=== PATIENT | female | born 1965 | race Caucasian/White ===

== ENCOUNTER 2017-08-17 08:31 | Emergency (ER) | payer BC ==
--- NOTE | 2017-08-17 09:36 | ED Physician Documentation ---
PD HPI URI - Stated complaint Stated Complaint: HEADACHE,SORE THROAT,COUGH - Chief complaint Chief Complaint: General - History obtained from History obtained from: Patient - History of Present Illness Timing - onset: How many days ago (5) Timing duration: Days (5) Timing details: Gradual onset, Still present Associated symptoms: Fever, Chills, Nasal congestion, Rhinorrhea, Sore throat, Dry cough, Dyspnea Contributing factors: Sick contact Improves by: Rest, Medication Worsened by: Activity Similar symptoms before: Diagnosis (influenza) Recently seen: Not recently seen - Additional information Additional information: 52-year-old female developed a cough congestion fever muscle aches and pains 5 days ago and this has persisted. She has been out of work since of last week and she was unable to get into see her doctor earlier today. 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 - Present Medications Home Medications: Ambulatory Orders Medication Instructions Recorded Confirmed Amoxicillin/Potassium Clav 1 each PO BID #28 tablet 06/20/13 [Augmentin 875-125 Tablet] - Allergies Allergies/Adverse Reactions: Allergies Allergy/AdvReac Type Severity Reaction Status Date / Time Iodinated Contrast- Oral and Allergy Unknown Verified 08/17/17 08:42 IV Dye - Social History Does the pt smoke?: No Smoking Status: Never smoker Does the pt drink ETOH?: No Does the pt have substance abuse?: No - Immunizations Immunizations are current?: Yes - POLST Patient has POLST: No PD ED PE NORMAL - Vitals Vital signs reviewed: Yes (Hypertensive) - General General: Alert and oriented X 3, No acute distress, Well developed/nourished - HEENT HEENT: Atraumatic, PERRL, EOMI, Ears normal, Other (Dry mucous membranes no inflammation in the pharynx) - Neck Neck: Supple, no meningeal sign, No bony TTP - Cardiac Cardiac: No murmur, Other (Tachycardic to 100) - Respiratory Respiratory: No respiratory distress, Clear bilaterally - Abdomen Abdomen: Soft, Non tender - Back Back: No CVA TTP, No spinal TTP - Derm Derm: Normal color, Warm and dry, No rash - Extremities Extremities: No deformity, No edema - Neuro Neuro: No motor deficit, No sensory deficit Eye Opening: Spontaneous Motor: Obeys Commands Verbal: Oriented GCS Score: 15 - Psych Psych: Normal mood, Normal affect Results - Vitals Vitals: Vital Signs - 24 hr 08/17/17 08:35 Temperature 36.7 C Heart Rate 94 Respiratory 20 Rate Blood Pressure 145/84 H O2 Saturation 97 Oxygen O2 Source Room air - Labs Labs: Laboratory Tests 08/17/17 08/17/17 08:58 08:58 Influenza A (Rapid) Negative Influenza B (Rapid) POSITIVE H Influenza Types A,B Ag + H Group A Strep Rapid Negative PD MEDICAL DECISION MAKING - ED course Complexity details: considered differential, d/w patient ED course: 52-year-old female with typical symptoms of influenza is positive for influenza B. She has no other signs of secondary infection at day 5 of her illness. She is administered dexamethasone. I discussed with the patient signs and symptoms of secondary infection as a reason to return to the emergency department. Departure - Departure Disposition: 01 Home, Self Care Clinical Impression: Influenza B Condition: Stable Instructions: ED Flu Follow-Up: Rio Magdaleno MD [Primary Care Provider] - Forms: Activity restrictions
[2017-08-17] MEDS ORDERED: DEXAMETHASONE 10 MG/ML VIAL PO STA (09:47)
[2017-08-17 10:10] VITALS: BP 138/81
== END 2017-08-17 10:08 | disposition home or self-care (01) ==
LOC: ED 08:31
DX: J10.1 Influenza due to other identified influenza virus with other respiratory manifestations (principal)
CPT/HCPCS: 87070; 87275; 87276; 87430; 99283

== ENCOUNTER 2018-01-07 09:21 | Day surgery (SDC) | payer BC ==
[2018-01-07] MEDS ORDERED: LACTATED RINGERS 1,000 ML IV ONE (10:00)
[2018-01-07] MEDS ORDERED: fentaNYL 250 MCG/5 ML VIAL IVP ONE (10:28)
[2018-01-07] MEDS ORDERED: MIDAZOLAM 2 MG/2 ML VIAL IVP ONE (10:28)
[2018-01-07 11:54] VITALS: BP 128/80
== END 2018-01-07 09:22 | disposition home or self-care (01) ==
LOC: SDS 09:21
PROVIDERS: ATTEND Surgery
PROC: 0DBN8ZZ Excision of Sigmoid Colon, Via Natural or Artificial Opening Endoscopic (ICD-10-PCS; principal; 2018-01-07 10:30)
DX: Z12.11 Encounter for screening for malignant neoplasm of colon (principal); D12.5 Benign neoplasm of sigmoid colon; K64.8 Other hemorrhoids; J45.909 Unspecified asthma, uncomplicated
CPT/HCPCS: 45380; J3010; J7120

== ENCOUNTER 2018-07-14 01:10 | Emergency (ER) | payer BC ==
[2018-07-14] MEDS ORDERED: MORPHINE 10 MG/ML VIAL IVP STA (01:45)
[2018-07-14] MEDS ORDERED: ONDANSETRON 4 MG/2 ML VIAL IVP STA (01:45)
[2018-07-14] MEDS ORDERED: SODIUM CHLORIDE 0.9% 1,000 ML IV STA (01:45)
[2018-07-14] MEDS ORDERED: KETOROLAC 15 MG/ML VIAL IVP STA (01:45)
[2018-07-14 01:55] LABS: BASOPHILS # (AUTO) 0.1 10^3/uL (0.0-0.1); BASOPHILS % (AUTO) 0.7 %; EOSINOPHILS % (AUTO) 0.2 %; HGB - HEMOGLOBIN 11.9 g/dL (12.0-16.0); LYMPHOCYTES # (AUTO) 0.9 10^3/uL (1.5-3.5); LYMPHOCYTES % (AUTO) 7.4 %; MEAN CORPUSCULAR HEMOGLOBIN 28.2 pg (27.0-31.0); MEAN CORPUSCULAR VOLUME 82.9 fL (81.0-99.0); MEAN PLATELET VOLUME 8.2 fL (7.9-10.8); MONOCYTES # (AUTO) 0.3 10^3/uL (0.0-1.0); MONOCYTES % (AUTO) 2.4 %; NEUTROPHILS # (AUTO) 11.4 10^3/uL (1.5-6.6); NEUTROPHILS % (AUTO) 89.3 %; PLT - PLATELET COUNT 257 10^3/uL (130-450); RED BLOOD COUNT 4.22 10^6/uL (4.20-5.40); RED CELL DISTRIBUTION WIDTH 14.2 % (12.0-15.0); WHITE BLOOD COUNT 12.8 x10^3/uL (4.8-10.8)
--- NOTE | 2018-07-14 01:55 | ED Physician Documentation ---
PD HPI ABD PAIN - Stated complaint Stated Complaint: BK PX/ABD PX - Chief complaint Chief Complaint: Abd Pain - History obtained from History obtained from: Patient - History of Present Illness Timing - onset: Yesterday Timing - duration: Days (1) Timing - details: Gradual onset Pain level max: 10 Pain level now: 10 Quality: Aching, Pain Location: RLQ Radiation: Right flank Improved by: Other (nothing) Worsened by: Moving, Palpation Associated symptoms: Nausea, Constipation. No: Fever, Vomiting, Hematemesis, Diarrhea, Melena, Hematochezia, Dysuria, Hematuria, Chest pain, Dizzy, Vaginal bleeding, Vaginal dc Similar symptoms before: Has not had sx before Recently seen: Not recently seen Review of Systems Ten Systems: 10 systems reviewed and negative Constitutional: denies: Fever, Chills Ears: denies: Ear pain Nose: denies: Rhinorrhea / runny nose, Congestion Throat: denies: Sore throat Cardiac: denies: Chest pain / pressure Respiratory: denies: Cough, Wheezing GI: reports: Constipation. 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 - Present Medications Home Medications: Ambulatory Orders Medication Instructions Recorded Confirmed Albuterol Sulfate [Proair Hfa 1 - 2 puffs INH Q4H PRN 01/06/18 07/14/18 Inhaler] Levothyroxine [Synthroid] 25 mcg PO DAILY 01/06/18 07/14/18 Loratadine/Pseudoephedrine 1 each PO DAILY 01/06/18 07/14/18 [Claritin-D 24 Hour Tablet] Meloxicam 15 mg PO DAILY 01/06/18 07/14/18 Montelukast [Singulair] 10 mg PO QPM 01/06/18 07/14/18 Ondansetron Odt [Zofran] 4 mg TL Q6H PRN #10 tablet 07/14/18 Oxycodone HCl/Acetaminophen 1 - 2 each PO Q6H PRN #14 tablet 07/14/18 [Percocet 5-325 mg Tablet] - Allergies Allergies/Adverse Reactions: Allergies Allergy/AdvReac Type Severity Reaction Status Date / Time Iodinated Contrast- Oral and Allergy Unknown Verified 08/17/17 08:42 IV Dye - Social History Does the pt smoke?: No Smoking Status: Never smoker Does the pt drink ETOH?: No Does the pt have substance abuse?: No - Immunizations Immunizations are current?: Yes - POLST Patient has POLST: No PD ED PE NORMAL - Vitals Vital signs reviewed: Yes - General General: Alert and oriented X 3, Well developed/nourished, Other (moaning, appears in pain) - HEENT HEENT: PERRL, Moist mucous membranes - Neck Neck: Supple, no meningeal sign - Cardiac Cardiac: RRR - Respiratory Respiratory: No respiratory distress, Clear bilaterally - Abdomen Abdomen: Normal bowel sounds, Soft, Non distended, Other (Diffusely tender to palpation but significantly worse in the right lower quadrant. Positive rebound and guarding) - Back Back: No CVA TTP, No spinal TTP - Derm Derm: Warm and dry, No rash - Extremities Extremities: No edema, No calf tenderness / cord - Neuro Neuro: Alert and oriented X 3 Results - Vitals Vitals: Vital Signs - 24 hr 07/14/18 07/14/18 07/14/18 01:15 02:01 02:05 Temperature 36.6 C Heart Rate 61 48 L Respiratory 24 18 Rate Blood Pressure 147/76 H 157/76 H O2 Saturation 100 98 86 L 07/14/18 07/14/18 07/14/18 02:24 02:39 03:02 Temperature 36.4 C L Heart Rate 50 L 51 L 54 L Respiratory 16 16 16 Rate Blood Pressure 146/79 H 122/82 H 122/82 H O2 Saturation 100 100 100 Oxygen O2 Source Room air Oxygen Flow Rate 2 - Labs Labs: Laboratory Tests 07/14/18 07/14/18 07/14/18 01:35 01:35 02:30 WBC 12.8 H RBC 4.22 Hgb 11.9 L Hct 35.0 L MCV 82.9 MCH 28.2 MCHC 34.0 RDW 14.2 Plt Count 257 MPV 8.2 Neut # (Auto) 11.4 H Lymph # (Auto) 0.9 L [place] # (Auto) 0.3 Eos # (Auto) 0.0 Baso # (Auto) 0.1 Absolute Nucleated RBC 0.01 Nucleated RBC % 0.1 Sodium 138 Potassium 3.5 Chloride 106 Carbon Dioxide 16 L Anion Gap 16.0 H BUN 14 Creatinine 1.0 Estimated GFR (MDRD) 58 L Glucose 133 H Calcium 9.4 Total Bilirubin 0.7 AST 18 ALT 14 Alkaline Phosphatase 80 Total Protein 7.3 Albumin 4.0 Globulin 3.3 Albumin/Globulin Ratio 1.2 Lipase 22 Urine Color YELLOW Urine Clarity CLEAR Urine pH 8.0 H Ur Specific [place] 1.020 Urine Protein NEGATIVE Urine Glucose (UA) NEGATIVE Urine Ketones >=80 H Urine Occult Blood TRACE-INTA Urine Nitrite NEGATIVE Urine Bilirubin NEGATIVE Urine Urobilinogen 0.2 (NORMAL) Ur Leukocyte Esterase NEGATIVE Ur Microscopic Review NOT INDICATED Urine Culture Comments NOT INDICATED - Rads (name of study) Abdomen pelvis CT without contrast Radiology: Prelim report reviewed, EMP read contemporaneously, See rad report (Mildly obstructing 2 x 2 mm distal right ureteral stone. 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 . Colonic diverticulosis. . Post-hysterectomy. ) PD MEDICAL DECISION MAKING - ED course Complexity details: reviewed results, re-evaluated patient, considered differential, d/w patient ED course: 53 year old female with a R distal ureteral stone. Pain well controlled in the ED. Tolerating PO well and hyperventilating resolved. No UTI. Will place on pain medication for home and this stone should pass. Patient counseled regarding signs and symptoms for which I believe and urgent re-evaluation would be necessary. Patient with good understanding of and agreement to plan and is comfortable going home at this time This document was made in part using voice recognition software. While efforts are made to proofread this document, sound alike and grammatical errors may occur. Departure - Departure Disposition: 01 Home, Self Care Clinical Impression: Kidney stone Condition: Good Instructions: ED Stone Renal W Colic Follow-Up: your,doctor in 1 week [Other] Prescriptions: Ondansetron Odt [Zofran] 4 mg TL Q6H PRN #10 tablet PRN Reason: Nausea / Vomiting Oxycodone HCl/Acetaminophen [Percocet 5-325 mg Tablet] 1 - 2 each PO Q6H PRN #14 tablet PRN Reason: pain Comments: You do have a kidney stone tonight. It is 2 x 2 mm and should pass. Return if you worsen. Drink plenty of fluids. Return especially for uncontrolled pain or fevers Do not drink alcohol or drive while on narcotic pain medicine. Note that many narcotic pain relievers also contain tylenol/acetaminophen. Please ensure that your total dose of acetaminophen from all sources does not exceed 3 grams (3000mg) per day. You may constipated on this medication, take a stool softener such as "Colace" twice a day while you are on it. Also recommend a alql-lpn-gkzygds laxative such as senna or MiraLAX any day that you do not have a bowel movement. If you received narcotic pain medication in the emergency department, do not drive or operate machinery for the next 24 hours. Forms: Activity restrictions Discharge Date/Time: 07/14/18 03:15
[2018-07-14 02:25] LABS: ALBUMIN/GLOBULIN RATIO 1.2 (1.0-2.2); BILIRUBIN,TOTAL 0.7 mg/dL (0.2-1.0); CALCIUM 9.4 mg/dL (8.5-10.3); TOTAL PROTEIN 7.3 g/dL (6.7-8.2)
--- NOTE | 2018-07-14 02:39 | CT Report ---
Reason: RLQ abd pain Procedure Date: 07/14/2018 Accession Number: [id number] / [id number] Procedure: CT - Abdomen/Pelvis W/O CPT Code: FULL RESULT: EXAM: CT ABDOMEN AND PELVIS (CT KUB) EXAM DATE: 07/14/2018 02:22 AM. CLINICAL HISTORY: Right lower quadrant abdominal pain. COMPARISONS: 02/17/2012 2:19 PM. TECHNIQUE: Routine axial helical CT imaging was performed through the abdomen and pelvis without IV contrast. Reconstructions: Coronal and sagittal. In accordance with CT protocol optimization, one or more of the following dose reduction techniques were utilized for this exam: automated exposure control, adjustment of mA and/or KV based on patient size, or use of iterative reconstructive technique. FINDINGS: Lung Bases: Unremarkable. Right Kidney/Ureter: Mildly obstructing 2 x 2 mm distal right ureteral stone within a few millimeters of the UVJ. Otherwise grossly unremarkable. Left Kidney/Ureter: No stones, hydronephrosis, or hydroureter. Other Abdominal Organs: Noncontrast images of the abdominal organs are grossly unremarkable with exception of polysplenia. Peritoneal Cavity: No free fluid, free air or mike adenopathy. No excessive stool burden. Bowel is grossly unremarkable with exception of congenital bowel malrotation and colonic diverticulosis. Pelvic Organs: Post-hysterectomy with no adnexal masses seen. The bladder appears within normal limits. Vasculature: Incidental interrupted IVC with azygos continuation. Other: Small fat-containing periumbilical hernia. IMPRESSION: 1. Mildly obstructing 2 x 2 mm distal right ureteral stone. 2. 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 3. Colonic diverticulosis. 4. Post-hysterectomy. RADIA
[2018-07-14 02:40] VITALS: BP 122/82
[2018-07-14 02:45] LABS: BILIRUBIN,URINE NEGATIVE (NEGATIVE); GLUCOSE, URINE (UA) NEGATIVE (NEGATIVE); KETONES,URINE (UA) >=80 mg/dL (NEGATIVE); LEUKOCYTE ESTERASE, URINE NEGATIVE (NEGATIVE); NITRITE,URINE NEGATIVE (NEGATIVE); OCCULT BLOOD,URINE TRACE-INTA (NEGATIVE); PROTEIN,URINE NEGATIVE (NEGATIVE); UROBILINOGEN,URINE 0.2 (NORMAL) E.U./dL (NORMAL)
[2018-07-14 02:46] LABS: CLARITY,URINE CLEAR (CLEAR)
[2018-07-14] MEDS ORDERED: oxyCODONE/ACET 5/325 Prepack 4 PO STA (03:02)
== END 2018-07-14 03:15 | disposition home or self-care (01) ==
LOC: ED 01:10
DX: N20.1 Calculus of ureter (principal); E03.9 Hypothyroidism, unspecified
CPT/HCPCS: 36415; 74176; 80053; 81001; 81003; 83690; 85025; 87086; 96374; 96375; 99283; 99284

== ENCOUNTER 2018-07-15 01:53 | Emergency (ER) | payer BC ==
[2018-07-15] MEDS ORDERED: KETOROLAC 60 MG/2 ML VIAL IM STA (02:02)
--- NOTE | 2018-07-15 02:22 | ED Physician Documentation ---
History of Present Illness - Stated complaint Stated Complaint: BACK,ABD PAIN - Chief complaint Chief Complaint: Abd Pain - History obtained from History obtained from: Patient - History of Present Illness Timing: Yesterday Pain level max: 10 Pain level now: 10 Improved by: nothing Worsened by: nothing - Additonal information Additional information: 53-year-old female with right-sided abdominal pain, worsening throughout the day. Seen here yesterday, diagnosed with a distal right ureter 2 mm ureteral stone. She has not taken any NSAIDs or her meloxicam. She did take 2 Percocet at 11:00 tonight but is still having pain. No fevers. Vomited x1. 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 - Present Medications Home Medications: Ambulatory Orders Medication Instructions Recorded Confirmed Albuterol Sulfate [Proair Hfa 1 - 2 puffs INH Q4H PRN 01/06/18 07/14/18 Inhaler] Levothyroxine [Synthroid] 25 mcg PO DAILY 01/06/18 07/14/18 Loratadine/Pseudoephedrine 1 each PO DAILY 01/06/18 07/14/18 [Claritin-D 24 Hour Tablet] Meloxicam 15 mg PO DAILY 01/06/18 07/14/18 Montelukast [Singulair] 10 mg PO QPM 01/06/18 07/14/18 Ondansetron Odt [Zofran] 4 mg TL Q6H PRN #10 tablet 07/14/18 Oxycodone HCl/Acetaminophen 1 - 2 each PO Q6H PRN #14 tablet 07/14/18 [Percocet 5-325 mg Tablet] Ibuprofen [Motrin] 800 mg PO Q8H PRN #30 tablet 07/15/18 - Allergies Allergies/Adverse Reactions: Allergies Allergy/AdvReac Type Severity Reaction Status Date / Time Iodinated Contrast- Oral and Allergy Unknown Verified 07/15/18 02:05 IV Dye - Social History Does the pt smoke?: No Smoking Status: Never smoker Does the pt drink ETOH?: No Does the pt have substance abuse?: No - Immunizations Immunizations are current?: Yes - POLST Patient has POLST: No PD ED PE NORMAL - Vitals Vital signs reviewed: Yes - General General: Alert and oriented X 3, No acute distress, Well developed/nourished - HEENT HEENT: PERRL, Moist mucous membranes - Neck Neck: Supple, no meningeal sign - Cardiac Cardiac: RRR, Strong equal pulses - Respiratory Respiratory: No respiratory distress, Clear bilaterally - Abdomen Abdomen: Soft, Non distended, Other (mild TTP RLQ) - Back Back: No CVA TTP, No spinal TTP - Derm Derm: Warm and dry, No rash - Extremities Extremities: No calf tenderness / cord - Neuro Neuro: Alert and oriented X 3 - Psych Psych: Normal mood, Normal affect Results - Vitals Vitals: Vital Signs - 24 hr 07/15/18 07/15/18 07/15/18 02:00 02:54 03:30 Temperature 36.6 C Heart Rate 57 L 54 L 54 L Respiratory 20 15 Rate Blood Pressure 181/82 H 118/69 O2 Saturation 100 99 Oxygen O2 Source Room air PD MEDICAL DECISION MAKING - ED course Complexity details: reviewed results, re-evaluated patient, considered differential, d/w patient ED course: 53-year-old female with a 2 mm distal right ureteral stone. Given Toradol and morphine, pain resolved. Will prescribe Motrin for home and have her continue her Percocet at home as well. She is well-appearing, nontoxic. Afebrile. No evidence of sepsis. Patient counseled regarding signs and symptoms for which I believe and urgent re-evaluation would be necessary. Patient with good understanding of and agreement to plan and is comfortable going home at this time This document was made in part using voice recognition software. While efforts are made to proofread this document, sound alike and grammatical errors may occur. Departure - Departure Disposition: 01 Home, Self Care Clinical Impression: Kidney stone Condition: Good Instructions: ED Stone Renal W Colic Follow-Up: Rio Magdaleno MD [Primary Care Provider] - Within 3 Days Prescriptions: Ibuprofen [Motrin] 800 mg PO Q8H PRN #30 tablet PRN Reason: PAIN &/OR FEVER Comments: Make sure to take the medication around the clock along with the Percocet you received last night. You should take this on a schedule until your pain is well controlled. Do not wait until the pain becomes severe. Return if you worsen. Discharge Date/Time: 07/15/18 03:31
[2018-07-15] MEDS ORDERED: MORPHINE 10 MG/ML VIAL IM STA (02:49)
[2018-07-15 03:31] VITALS: BP 118/69
== END 2018-07-15 03:31 | disposition home or self-care (01) ==
LOC: ED 01:53
DX: N20.2 Calculus of kidney with calculus of ureter (principal)
CPT/HCPCS: 96372; 96374; 96375; 99283

== ENCOUNTER 2018-08-05 06:51 | Outpatient (CLI) | payer BC ==
--- NOTE | 2018-08-05 10:49 | Ultrasound Report ---
Reason: CALCULUS OF KIDNEY Procedure Date: 08/05/2018 Accession Number: [id number] / [id number] Procedure: US - Retroperitoneal CPT Code: FULL RESULT: EXAM: RENAL ULTRASOUND EXAM DATE: 08/05/2018 07:39 AM. CLINICAL HISTORY: CALCULUS OF KIDNEY. For follow-up COMPARISON: 07/14/2018 TECHNIQUE: Real-time scanning was performed with static images obtained. FINDINGS: Right Kidney: 11 x 4.7 x 5.2 cm. Normal echotexture with no stones, contour-deforming masses, or hydronephrosis. Left Kidney: 10.7 x 4.5 x 5.4 cm. Normal echotexture with no stones, contour-deforming masses, or hydronephrosis. Parapelvic cyst 1.3 x 1.1 x 1.2 [place] meters Bladder: Bilateral jets seen. The prevoid bladder volume was 155 cc. The postvoid bladder volume was 17 cc. Other: None. IMPRESSION: No significant abnormality renal ultrasound. RADIA
== END 2018-08-05 06:52 | disposition home or self-care (01) ==
LOC: DI 06:51
PROVIDERS: ATTEND Specialist
DX: N20.0 Calculus of kidney (principal)
CPT/HCPCS: 76770

== ENCOUNTER 2019-09-25 13:38 | Outpatient (CLI) | payer BC | END 2019-09-25 13:39 | disposition home or self-care (01) | LOC: COV 13:38 | PROVIDERS: ATTEND Family Medicine | DX: R05 Cough (principal) | CPT/HCPCS: 81599 ==

== ENCOUNTER 2020-07-02 16:37 | Emergency (ER) | payer BC ==
[2020-07-02] MEDS ORDERED: ALBUTEROL 1 PUFF INH STA (17:47)
--- NOTE | 2020-07-02 17:49 | ED Physician Documentation ---
History of Present Illness - Stated complaint Stated Complaint: COUGH, POSITIVE COVID EXPOSURE - Chief complaint Chief Complaint: General - Additonal information Additional information: 55-year-old female presents emergency department for evaluation of cough that began 3 days ago. She works at [employer] ([employer] and reports that a coworker was diagnosed with Covid a few weeks ago. She reports a low-grade temperature elevation of 99.7. Cough is nonproductive. She has some mild shortness of breath and is worried that she is developing pneumonia. She does have a history of asthma and has taken albuterol in the past but does not have a current inhaler or prescription. She is a non-smoker. She also endorses loss of voice but more so throat. Review of Systems Constitutional: reports: Fever. 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 - Present Medications Home Medications: Ambulatory Orders Medication Instructions Recorded Confirmed Albuterol Sulf [Ventolin Hfa 1 - 2 puffs INH Q4HR PRN #1 inhaler 07/02/20 Inhaler] - Allergies Allergies/Adverse Reactions: Allergies Allergy/AdvReac Type Severity Reaction Status Date / Time Iodinated Contrast Media Allergy Unknown Verified 07/02/20 16:57 [Iodinated Contrast- Oral and IV Dye] - Social History Does the pt smoke?: No Smoking Status: Never smoker Does the pt drink ETOH?: No Does the pt have substance abuse?: No - Immunizations Immunizations are current?: Yes - POLST Patient has POLST: No PD ED PE NORMAL - HEENT HEENT: Atraumatic, Moist mucous membranes, Pharynx benign - Neck Neck: Supple, no meningeal sign, No adenopathy - Cardiac Cardiac: RRR, No murmur - Respiratory Respiratory: No respiratory distress, Other (Faint scattered expiratory wheeze left middle left upper lobe. No acute tachypnea retractions) - Abdomen Abdomen: Normal bowel sounds, Soft, Non tender - Derm Derm: Normal color, Warm and dry, No rash Results - Vitals Vitals: Vital Signs - 24 hr 07/02/20 07/02/20 16:57 18:05 Temperature 37.4 C Heart Rate 77 90 Respiratory 20 16 Rate Blood Pressure 152/91 H O2 Saturation 98 Oxygen O2 Source Room air - Rads (name of study) CXR Radiology: Final report received (No acute cardiopulmonary findings) PD MEDICAL DECISION MAKING - ED course Complexity details: reviewed results, re-evaluated patient, considered differential, d/w patient ED course: 55-year-old female who has a history of asthma comes to the emergency department for evaluation of 3 days cough low-grade temperature elevation. She did have a Covid exposure 2 weeks ago at work. COVID-19 screening is pending. Here on exam she had very small amount of faint scattered wheezes in the left upper lobe. Cardiopulmonary auscultation was otherwise unremarkable. No hypoxia. Chest x-ray unremarkable. I suspect she likely has a viral URI. Patient advised to remain in quarantine until results known. Will defer antibiotics at this time. Emergent worrisome return precautions discussed Departure - Departure Disposition: 01 Home, Self Care Clinical Impression: Cough Condition: Stable Record reviewed to determine appropriate education?: Yes Instructions: ED URI Ch Prescriptions: Albuterol Sulf [Ventolin Hfa Inhaler] 1 - 2 puffs INH Q4HR PRN #1 inhaler PRN Reason: Shortness Of Air/Wheezing Comments: You were seen today for a cough. Your chest x-ray is normal. Your vital signs are also normal. The most likely cause of your cough is a virus. I do recommend that you stay well-hydrated. I have written a prescription for albuterol for you to use with a spacer 3-4 times a day at home. You have a Covid test pending. You need to self quarantine until the result is done and negative. Do not leave your house. Do not get near anybody. The results should be done in 48 to 72 hours. We will call with a positive result, the fastest way to get a negative result for confirmation though is to go to the hospital website at [email or web address], click on the my [facility] tab and sign up for the patient portal. If any friends or family get sick and would like to have a Covid test done, but do not have signs or symptoms that would necessitate being hospitalized, we encourage testing through our coronavirus swabbing station, call [phone] to schedule an appointment.
--- NOTE | 2020-07-02 18:24 | XRAY Report ---
PROCEDURE: Chest 1 View X-Ray INDICATIONS: cough TECHNIQUE: One view of the chest was acquired. COMPARISON: None available for review. FINDINGS: Surgical changes and devices: None. Lungs and pleura: No pleural effusions or pneumothorax. Lungs are clear. Mediastinum: Mediastinal contours appear normal. Heart size is normal. Bones and chest wall: No suspicious bony lesions. Overlying soft tissues appear unremarkable. IMPRESSION: Chest without acute cardiopulmonary abnormalities or focal airspace disease. Reviewed by: Russell Bush MD on 07/02/2020 5:23 PM [facility] Approved by: Russell Bush MD on 07/02/2020 5:23 PM [facility] Station ID: [id number]
[2020-07-02 18:39] VITALS: BP 134/83
--- OUTSIDE RECORDS SUMMARY | 2020-07-03 04:53 | EXTERNAL MEDICAL SUMMARY RPT | Continuity of Care Document ---
:1965 Demographics Phone Unavailable Preferred Language Unknown Marital Status Unknown Mosque Affiliation Unknown Race Unknown Ethnic Group Unknown Author Organization [facility] Address [address] [place] [address] Phone Care Team Providers Name Role Phone Rasta Unavailable Unavailable WINDRashad Unavailable Unavailable Problems date description facility 2013-01-11 20:34 SPRAIN OF KNEE LEG NOS [facility] 2013-01-11 20:34 LOWER LEG INJURY NOS [facility] [place] 2013-01-11 20:34 CIVILIAN ACTIVITY DONE FOR INCOME [facility] OR PAY 2013-01-11 20:34 ACC ON INDUSTR PREMISES [facility] 2013-01-11 20:34 FALL ON STAIR/STEP NEC [facility] M [facility] [place] 2013-06-20 13:58 ACUTE PHARYNGITIS [facility] 2013-06-20 13:58 CHRONIC SINUSITIS NOS [facility] d[facility] [place] 2013-06-20 13:58 FEVER, UNSPECIFIED [facility] 2015-09-30 09:24 UNSPECIFIED ASTHMA, UNCOMPLICATED [facility] 2015-10-22 08:46 ENCNTR SCREEN MAMMOGRAM FOR [facility] MALIGNANT NEOPLASM OF BREAST 2017-08-17 08:31 FLU DUE TO OTH IDENT INFLUENZA [facility] VIRUS W OTH RESP MANIFEST 2017-08-17 08:31 HEADACHE [facility] 2018-01-07 09:21 BENIGN NEOPLASM OF SIGMOID COLON [facility] 2018-01-07 09:21 UNSPECIFIED ASTHMA, UNCOMPLICATED [facility] 2018-01-07 09:21 OTHER HEMORRHOIDS [facility] 2018-01-07 09:21 ENCOUNTER FOR SCREENING FOR [facility] MALIGNANT NEOPLASM OF COLON 2018-07-14 01:10 HYPOTHYROIDISM, UNSPECIFIED [facility] 2018-07-14 01:10 CALCULUS OF URETER [facility] 2018-07-14 01:10 RIGHT LOWER QUADRANT PAIN [facility] 2018-07-15 01:53 DORSALGIA, UNSPECIFIED [facility] edical Center 2018-07-15 01:53 CALCULUS OF KIDNEY WITH CALCULUS [facility] OF URETER 2018-08-05 06:51 CALCULUS OF KIDNEY [facility] 2019-09-25 13:38 COUGH [facility] [place] Allergies date description facility PENICILLINS [facility] [place] SULFA (SULFONAMIDE ANTIBIOTICS) [facility] CODEINE [facility] [place] NO ALLERGY INFORMATION AVAILABLE [facility] PEPPER (GENUS CAPSICUM) [facility] POTATO [facility] NAPROXEN [facility] [place] LATEX [facility] [place] AMOXICILLIN [facility] [place] Iodinated Contrast Media [facility] Social History date description facility [id number]
== END 2020-07-02 18:46 | disposition home or self-care (01) ==
LOC: ED 16:37
DX: R05 Cough (principal); Z20.822 Contact with and (suspected) exposure to COVID-19; J45.909 Unspecified asthma, uncomplicated
CPT/HCPCS: 94640; 99284

== ENCOUNTER 2021-01-16 16:46 | Outpatient (CLI) | payer BC | END 2021-01-16 16:47 | disposition home or self-care (01) | LOC: COV 16:46 | PROVIDERS: ATTEND Family Medicine | DX: R50.9 Fever, unspecified (principal); R05 Cough; R06.02 Shortness of breath; M79.10 Myalgia, unspecified site; R53.83 Other fatigue; R07.0 Pain in throat; R09.81 Nasal congestion; J34.89 Other specified disorders of nose and nasal sinuses; Z20.822 Contact with and (suspected) exposure to COVID-19 ==

== ENCOUNTER 2021-05-14 14:04 | Emergency (ER) | payer BC ==
[2021-05-14] MEDS ORDERED: HYDROmorphone 1 MG/ML CARPUJECT IVP STA (14:31)
[2021-05-14] MEDS ORDERED: ONDANSETRON 4 MG/2 ML VIAL IVP STA ×2 (14:31→15:50)
[2021-05-14] MEDS ORDERED: SODIUM CHLORIDE 0.9% 1,000 ML IV STA (14:31)
--- NOTE | 2021-05-14 14:34 | ED Physician Documentation ---
History of Present Illness - Stated complaint Stated Complaint: BACK/ABDOMINAL PX, NAUSEA - Chief complaint Chief Complaint: Abd Pain - Additonal information Additional information: 55-year-old female who carries a history of hyperlipidemia as well as hypothyroid presents the emergency department with 2 days of acute right CVA and right upper quadrant pain. Some nausea no vomiting. No fevers no cough. She has however lost her appetite. Pain is constant and worse when she chooses to lay on either side. Past surgical history most significant for hysterectomy. She retains her appendix and gallbladder. She does have a remote history of renal colic but states that this feels different. Review of Systems Constitutional: denies: Fever, Chills Eyes: reports: Reviewed and negative Nose: reports: Reviewed and negative Throat: reports: Reviewed and negative Cardiac: reports: Reviewed and negative Respiratory: denies: Dyspnea, Cough GI: reports: Abdominal Pain, Nausea. 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 - Present Medications Home Medications: Ambulatory Orders Medication Instructions Recorded Confirmed Albuterol Sulf [Ventolin Hfa 1 - 2 puffs INH Q4HR PRN #1 inhaler 07/02/20 Inhaler] Omeprazole 40 mg PO DAILY #30 cap 05/14/21 Ondansetron Odt [Zofran] 4 mg TL Q6H PRN #10 tablet 05/14/21 - Allergies Allergies/Adverse Reactions: Allergies Allergy/AdvReac Type Severity Reaction Status Date / Time Iodinated Contrast Media Allergy Unknown Verified 05/14/21 14:15 [Iodinated Contrast- Oral and IV Dye] - Social History Does the pt smoke?: No Smoking Status: Never smoker Does the pt drink ETOH?: No Does the pt have substance abuse?: No - Immunizations Immunizations are current?: Yes - POLST Patient has POLST: No PD ED PE EXPANDED - General General: Alert, No acute distress, Well developed/nourished, Other (Morbid obesity) - Neck Neck: Supple w/out meningeal sx. No: Adenopathy - Cardiac Cardiac: Regular Rate, Regular Rhythm. No: Murmur Present - Respiratory Respiratory: Clear to ausultation magda. No: Distress, Labored - Abdomen Abdomen: Normal Bowel sounds, Tender to palpation. No: Rebound, Guarding (Mild tenderness to the right CVA and right upper quadrant without guarding or rebound.) Results - Vitals Vitals: Vital Signs - 24 hr 05/14/21 05/14/21 05/14/21 14:07 14:52 16:30 Temperature 36.6 C Heart Rate 92 81 61 Respiratory 16 18 18 Rate Blood Pressure 152/102 H 145/95 H 137/76 H O2 Saturation 99 99 100 Oxygen O2 Source Room air - Labs Labs: Laboratory Tests 05/14/21 05/14/21 05/14/21 14:30 14:40 14:40 WBC 7.3 RBC 4.53 Hgb 12.7 Hct 39.9 MCV 88.1 MCH 28.0 MCHC 31.8 L RDW 13.8 Plt Count 247 MPV 10.2 Neut # (Auto) 4.8 Lymph # (Auto) 1.7 [place] # (Auto) 0.5 Eos # (Auto) 0.2 Baso # (Auto) 0.0 Absolute Nucleated RBC 0.00 Nucleated RBC % 0.0 Sodium 138 Potassium 3.5 Chloride 100 L Carbon Dioxide 25 Anion Gap 13.0 BUN 10 Creatinine 0.7 Estimated GFR (MDRD) 87 L Glucose 115 H Calcium 10.0 Total Bilirubin 0.7 AST 19 ALT 23 Alkaline Phosphatase 100 Total Protein 8.9 H Albumin 4.6 Globulin 4.3 H Albumin/Globulin Ratio 1.1 Lipase 23 Urine Color YELLOW Urine Clarity CLEAR Urine pH 5.5 Ur Specific [place] >=1.030 H Urine Protein NEGATIVE Urine Glucose (UA) NEGATIVE Urine Ketones NEGATIVE Urine Occult Blood MODERATE H Urine Nitrite NEGATIVE Urine Bilirubin NEGATIVE Urine Urobilinogen 0.2 (NORMAL) Ur Leukocyte Esterase NEGATIVE Urine RBC 0-5 Urine WBC 0-3 Ur Squamous Epith Cells RARE Squamous Urine Crystals 6-10 Calcium Oxalate Urine Bacteria None Seen Ur Microscopic Review INDICATED Urine Culture Comments NOT INDICATED Urine HCG, Qual NEGATIVE - Rads (name of study) ABD/Pelvis Radiology: Final report received (Diverticulosis. No visualized nephro or uret erolithiasis. No visualized right lower quadrant inflammatory change.) CXR Radiology: Final report received (No acute pulmonary process.) Abd US Radiology: Final report received (Hepatomegaly. No cholelithiasis. No gallbladder wall thickening. No secondary findings to suggest acute cholecystitis.) PD MEDICAL DECISION MAKING - ED course Complexity details: reviewed results, re-evaluated patient, d/w patient ED course: 55-year-old female presents the emergency department for evaluation of 2 days right upper quadrant and right flank pain. She has had some nausea but no vomiting. On exam she was tender in the right upper quadrant. Screening labs showed no acute worrisome abnormality. No findings of infection in the urine that we do note moderate hematuria. 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 Given the location the right upper quadrant abdominal pain An ultrasound of the right upper quadrant was completed that did not show any findings consistent with acute cholecystitis. Pain is improved here in the emergency department following Dilaudid. She did require multiple antiemetics with good resolve of the nausea. Patient will follow up with her primary care provider. Emergent return precautions were discussed. Departure - Departure Disposition: 01 Home, Self Care Clinical Impression: Upper abdominal pain Condition: Stable Record reviewed to determine appropriate education?: Yes Instructions: ED Abdominal Pain Cause Unkn Fem Ch Follow-Up: Fidencio Shafer DO [Primary Care Provider] - Prescriptions: Omeprazole 40 mg PO DAILY #30 cap Ondansetron Odt [Zofran] 4 mg TL Q6H PRN #10 tablet PRN Reason: Nausea / Vomiting Comments: Shayla erickson were seen in the emergency department today for right-sided back as well as right upper quadrant abdominal pain. Your screening labs were essentially normal with the exception of your urine showing a small amount of blood in it. There is no obvious infection. A CT of the abdomen did not show an obvious cause for your abdominal pain including kidney stones. An abdominal ultrasound was also completed that did not show findings of problems with your gallbladder. You do have a mildly enlarged liver and this is something that should be followed up with your primary care doctor. The cause of your abdominal pain is not clear though sometimes gastritis or stomach inflammation can present a similar way. I would like you to fill the prescription for the omeprazole which is an acid pill and begin taking daily. I also recommend that you sip clear liquids for the next 24 hours. I have written a prescription for some Zofran to be used at home. If your symptoms are not improving, you develop fevers, have black or bloody stools then please return immediately to the ER for a second evaluation.
[2021-05-14 14:53] LABS: BASOPHILS % (AUTO) 0.4 %; EOSINOPHILS # (AUTO) 0.2 10^3/uL (0.0-0.7); EOSINOPHILS % (AUTO) 3.1 %; HCT - HEMATOCRIT 39.9 % (37.0-47.0); HGB - HEMOGLOBIN 12.7 g/dL (12.0-16.0); LYMPHOCYTES # (AUTO) 1.7 10^3/uL (1.5-3.5); LYMPHOCYTES % (AUTO) 23.8 %; MEAN CORPUSCULAR HGB CONC 31.8 g/dL (32.0-36.0); MEAN CORPUSCULAR VOLUME 88.1 fL (81.0-99.0); MEAN PLATELET VOLUME 10.2 fL (7.9-10.8); MONOCYTES # (AUTO) 0.5 10^3/uL (0.0-1.0); MONOCYTES % (AUTO) 6.1 %; NEUTROPHILS # (AUTO) 4.8 10^3/uL (1.5-6.6); NEUTROPHILS % (AUTO) 66.1 %; PLT - PLATELET COUNT 247 10^3/uL (130-450); RED BLOOD COUNT 4.53 10^6/uL (4.20-5.40); RED CELL DISTRIBUTION WIDTH 13.8 % (12.0-15.0); WHITE BLOOD COUNT 7.3 x10^3/uL (4.8-10.8)
[2021-05-14 14:57] LABS: BILIRUBIN,URINE NEGATIVE (NEGATIVE); GLUCOSE, URINE (UA) NEGATIVE (NEGATIVE); KETONES,URINE (UA) NEGATIVE (NEGATIVE); LEUKOCYTE ESTERASE, URINE NEGATIVE (NEGATIVE); NITRITE,URINE NEGATIVE (NEGATIVE); OCCULT BLOOD,URINE MODERATE (NEGATIVE); PH,URINE 5.5 PH (5.0-7.5); PROTEIN,URINE NEGATIVE (NEGATIVE); UROBILINOGEN,URINE 0.2 (NORMAL) E.U./dL (NORMAL)
[2021-05-14 15:00] LABS: CLARITY,URINE CLEAR (CLEAR); HCG UR QUAL NEGATIVE
[2021-05-14 15:01] LABS: BACTERIA,URINE None Seen /HPF (None Seen); CRYSTALS,URINE 6-10 Calcium Oxalate /LPF; RBC,URINE 0-5 /HPF (0-5); SQUAMOUS EPITHELIAL CELL,UR RARE Squamous (<= Few); WBC,URINE 0-3 /HPF (0-5)
[2021-05-14 15:12] LABS: ALBUMIN 4.6 g/dL (3.2-5.5); ALBUMIN/GLOBULIN RATIO 1.1 (1.0-2.2); BILIRUBIN,TOTAL 0.7 mg/dL (0.2-1.0); CREATININE 0.7 mg/dL (0.4-1.0); POTASSIUM 3.5 mmol/L (3.5-5.0); TOTAL PROTEIN 8.9 g/dL (6.7-8.2)
--- NOTE | 2021-05-14 15:38 | CT Report ---
PROCEDURE: Abdomen/Pelvis WO INDICATIONS: Right flank/RUQ pain TECHNIQUE: Noncontrast 5 mm thick sections acquired from the diaphragms to the symphysis. 5 mm coronal and sagi ttal reformats were then performed. For radiation dose reduction, the following was used: automated exposure control, adjustment of mA and/or kV according to patient size. COMPARISON: CT abdomen pelvis 07/14/2018 FINDINGS: Image quality: Excellent. ABDOMEN: Lung bases: Lung bases are clear. Heart size is normal. Solid organs: Liver is normal in size. Multiple soft tissue densities are noted in the left upper a bdomen suggestive of multiple splenules. Gallbladder is unremarkable Pancreas is normal in contours. No adrenal nodules. Kidneys are normal in size, without hydronephrosis or nephrolithiasis. Peritoneum and bowel: Unenhanced bowel loops demonstrate normal wall thickness and caliber. No free fluid or air. Colonic diverticula are present without associated mesenteric change. Nodes and vessels: No retroperitoneal or mesenteric adenopathy by size criteria. Aorta and inferior vena cava are normal in caliber. There is incidental note of an interrupted IVC with azygous contin uation, consistent with congenital variation.. Miscellaneous: Fat-containing ventral hernia is unchanged. PELVIS: Genitourinary: Bladder wall thickness is normal. Miscellaneous: No inguinal hernias or adenopathy. Bones: No suspicious bony lesions. No vertebral body compression fractures. IMPRESSION: 1. Diverticulosis. 2. No visualized nephro or ureterolithiasis. 3. No visualized right lower quadrant inflammatory change. Reviewed by: Kiera Jefferson MD on 05/14/2021 3:36 PM PST Approved by: Kiera Jefferson MD on 05/14/2021 3:36 PM PST Station ID: [id number]
--- NOTE | 2021-05-14 15:38 | XRAY Report ---
PROCEDURE: Chest 1 View X-Ray INDICATIONS: chest pain TECHNIQUE: One view of the chest was acquired. COMPARISON: Chest x-ray 11/30/2020 FINDINGS: Surgical changes and devices: None. Lungs and pleura: No pleural effusions or pneumothorax. Lungs are clear. Mediastinum: Mediastinal contours appear normal. Heart size is normal. Bones and chest wall: No suspicious bony lesions. Overlying soft tissues appear unremarkable. IMPRESSION: No acute pulmonary process. Reviewed by: Kiera Jefferson MD on 05/14/2021 3:37 PM PST Approved by: Kiera Jefferson MD on 05/14/2021 3:37 PM [facility] Station ID: [id number]
[2021-05-14] MEDS ORDERED: PROCHLORPERAZINE 10 MG/2 ML VIAL IVP STA (16:38)
[2021-05-14 17:59] VITALS: BP 137/69
--- NOTE | 2021-05-14 18:07 | Ultrasound Report ---
PROCEDURE: Abdomen Limited INDICATIONS: RUQ abd pain TECHNIQUE: Real-time focused scanning was performed of the abdomen, with image documentation. COMPARISON: Correlation is made with abdomen and pelvis CT, 05/14/2021. FINDINGS: The liver demonstrates mildly prominent size. The liver demonstrates moderately increased echogenicity, which limits ultrasound sensitivity for detection of masses. No gallstones or sludge can be seen. The gallbladder wall does not appear thickened. There is no spec ific pericholecystic fluid. The sonographic Hdez's sign is negative. No biliary ductal dilatation is seen. The common bile duct measures 4 mm. The visualized pancreas is within normal limits. The visualized right kidney is unremarkable. IMPRESSION: Mildly enlarged, fatty liver. Note: Concordant preliminary findings given by the clinical associate upon the completion of the examination to Ava Vargas at 5:25 PM on 05/14/2021. Reviewed by: Mikey Astudillo MD on 05/14/2021 5:06 PM [place] Approved by: Mikey Astudillo MD on 05/14/2021 5:06 PM [place] Station ID: [id number]
== END 2021-05-14 18:00 | disposition home or self-care (01) ==
LOC: ED 14:04
DX: R10.11 Right upper quadrant pain (principal); R31.9 Hematuria, unspecified
CPT/HCPCS: 36415; 71045; 74176; 76705; 80053; 81001; 81025; 83690; 85025; 96374; 96375; 96376; 99283; 99284; J1170; 81003; 87086

== ENCOUNTER 2021-07-17 14:24 | Outpatient (CLI) | payer BC ==
--- NOTE | 2021-07-21 09:53 | Mammography Report ---
BILATERAL DIGITAL SCREENING MAMMOGRAM 3D/2D: 07/17/2021 CLINICAL: Routine screening. Comparison is made to exam dated: 10/22/2015 mammogram - [facility]. There are scat tered fibroglandular elements in both breasts. No significant masses, calcifications, or other findings are seen in either breast. There has been no significant interval change. IMPRESSION: NEGATIVE There is no mammographic evidence of malignancy. A 1 year screening mammogram is recommended. This exam was interpreted at Station ID: [id number]. NOTE: For mammograms, a report in lay terms will be sent to the patient. Approximately 15% of breast malignancies will not be visualized mammographically. In the management of a palpable breast mass, a negative mammogram must not discourage biopsy of a clinically suspicious lesion. Electronically Signed By: Major Galvez acr/penrad:07/18/2021 08:27:08 ACR BI-RADS Category 1: Negative [id number] PARENCHYMAL PATTERN: (A) - The breast(s) demonstrate(s) scattered fibroglandular densities. BI-RADS CATEGORY: (1) - 1 RECOMMENDATION: (ANNUAL) - Recommend routine annual screening mammography. [id number] 1 year screening LATERALITY: (B)
== END 2021-07-17 14:25 | disposition home or self-care (01) ==
LOC: DI.N 14:24
DX: Z12.31 Encounter for screening mammogram for malignant neoplasm of breast (principal)

== ENCOUNTER 2022-03-26 17:49 | Emergency (ER) | payer BC ==
--- NOTE | 2022-03-26 18:08 | ED Physician Documentation ---
PD HPI CHEST PAIN - Stated complaint Stated Complaint: HIGH HR - Chief complaint Chief Complaint: Cardiac - History obtained from History obtained from: Patient - Additional information Additional information: 56-year-old woman with no history of heart disease. She does have a history of hypothyroidism with medications adjusted this earlier this year and no repeat check since. Today she was sitting in a meeting and her phone told her that her heart rate was about 150. She felt fine at the time and continues to feel fine without shortness of breath, palpitations or chest pain. 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 - Present Medications Home Medications: Ambulatory Orders Medication Instructions Recorded Confirmed Albuterol Sulf [Ventolin Hfa 1 - 2 puffs INH Q4HR PRN #1 inhaler 07/02/20 Inhaler] Omeprazole 40 mg PO DAILY #30 cap 05/14/21 Ondansetron Odt [Zofran] 4 mg TL Q6H PRN #10 tablet 05/14/21 Atorvastatin [Lipitor] 0 mg 03/26/22 Levothyroxine Sodium [Euthyrox] 03/26/22 Loratadine/Pseudoephedrine 1 each PO 03/26/22 [Claritin-D 12 Hour Tablet] Montelukast [Singulair] 10 mg PO QPM 03/26/22 03/26/22 - Allergies Allergies/Adverse Reactions: Allergies Allergy/AdvReac Type Severity Reaction Status Date / Time Iodinated Contrast Media Allergy Unknown Verified 05/14/21 14:15 [Iodinated Contrast- Oral and IV Dye] - Social History Does the pt smoke?: No Smoking Status: Never smoker Does the pt drink ETOH?: No Does the pt have substance abuse?: No - Immunizations Immunizations are current?: Yes - POLST Patient has POLST: No PD ED PE NORMAL - Vitals Vital signs reviewed: Yes - General General: Alert and oriented X 3, No acute distress - HEENT HEENT: PERRL, EOMI - Neck Neck: Supple, no meningeal sign, No bony TTP - Cardiac Cardiac: No murmur, Other (Sounds like bigeminy on exam, regularly irregular) - Respiratory Respiratory: No respiratory distress, Clear bilaterally - Abdomen Abdomen: Non tender - Back Back: No CVA TTP, No spinal TTP - Derm Derm: Normal color, Warm and dry - Extremities Extremities: No edema, No calf tenderness / cord - Neuro Neuro: Alert and oriented X 3, Normal speech - Psych Psych: Normal mood, Normal affect Results - Vitals Vitals: Vital Signs - 24 hr 03/26/22 17:54 Temperature 36.7 C Heart Rate 84 Respiratory 12 Rate Blood Pressure 186/96 H O2 Saturation 100 Oxygen O2 Source Room air - EKG (time done) 1818 Rate: Rate (enter#) (76) Rhythm: NSR [place]: Normal Intervals: Normal NV QRS: Low voltage Ischemia: Non specific changes Computer interpretation: Agree with computer - Labs Labs: Laboratory Tests 03/26/22 03/26/22 03/26/22 18:06 18:15 18:15 WBC 6.5 RBC 4.33 Hgb 12.3 Hct 38.3 MCV 88.5 MCH 28.4 MCHC 32.1 RDW 14.6 Plt Count 234 MPV 10.5 Neut # (Auto) 4.0 Lymph # (Auto) 1.8 [place] # (Auto) 0.3 Eos # (Auto) 0.3 Baso # (Auto) 0.0 Absolute Nucleated RBC 0.00 Nucleated RBC % 0.0 Sodium 139 Potassium 3.4 L Chloride 104 Carbon Dioxide 26 Anion Gap 9.0 BUN 13 Creatinine 0.8 Estimated GFR (MDRD) 74 L Glucose 146 H Calcium 9.5 Magnesium 1.9 TSH 33.89 H PD MEDICAL DECISION MAKING - ED course ED course: 56-year-old woman had an episode of asymptomatic tachycardia based on her core watch while at work tonight. On initial examination here it sounds like she was in bigeminy but by the time we got her on the monitor she was in sinus rhythm and remained that way without ectopy throughout her stay. She remained asymptomatic. She does have a borderline low potassium and this was repleted orally. Her TSH is high and discussion of needing to titrate her thyroid medications with her primary care physician when are taken. Also discussion of referral with primary care for follow-up for Holter monitor or CAM patch. Departure - Departure Disposition: 01 Home, Self Care Clinical Impression: Atrial arrhythmia Condition: Good Record reviewed to determine appropriate education?: Yes Instructions: ED Dysrhythmia Unspecified Comments: As discussed, today although we did not catch any arrhythmias, my suspicion is that based on the fact that I thought you were in bigeminy on initial examination you may have had an episode of atrial fibrillation this evening at work. While you are on the monitor we noted no arrhythmias.. Return for new or worsening symptoms. Follow-up with your doctor for titration of your thyroid medications as your TSH was high meaning your actual thyroid hormone levels are low, And also follow-up for consideration for a CAM patch or Holter monitor.
[2022-03-26 18:20] LABS: BASOPHILS % (AUTO) 0.5 %; EOSINOPHILS # (AUTO) 0.3 10^3/uL (0.0-0.7); EOSINOPHILS % (AUTO) 4.6 %; HCT - HEMATOCRIT 38.3 % (37.0-47.0); HGB - HEMOGLOBIN 12.3 g/dL (12.0-16.0); LYMPHOCYTES # (AUTO) 1.8 10^3/uL (1.5-3.5); MEAN CORPUSCULAR HEMOGLOBIN 28.4 pg (27.0-31.0); MEAN CORPUSCULAR HGB CONC 32.1 g/dL (32.0-36.0); MEAN CORPUSCULAR VOLUME 88.5 fL (81.0-99.0); MEAN PLATELET VOLUME 10.5 fL (7.9-10.8); MONOCYTES # (AUTO) 0.3 10^3/uL (0.0-1.0); MONOCYTES % (AUTO) 4.6 %; NEUTROPHILS % (AUTO) 61.8 %; PLT - PLATELET COUNT 234 10^3/uL (130-450); RED BLOOD COUNT 4.33 10^6/uL (4.20-5.40); RED CELL DISTRIBUTION WIDTH 14.6 % (12.0-15.0); WHITE BLOOD COUNT 6.5 x10^3/uL (4.8-10.8)
[2022-03-26 18:35] LABS: CALCIUM 9.5 mg/dL (8.5-10.3); CREATININE 0.8 mg/dL (0.4-1.0); MAGNESIUM 1.9 mg/dL (1.7-2.8); POTASSIUM 3.4 mmol/L (3.5-5.0)
[2022-03-26] MEDS ORDERED: POTASSIUM CHLORIDE 20 MEQ TABLET PO STA (19:05)
[2022-03-26 19:13] VITALS: BP 173/87
== END 2022-03-26 19:21 | disposition home or self-care (01) ==
LOC: ED 17:49
DX: I49.8 Other specified cardiac arrhythmias (principal)
CPT/HCPCS: 36415; 80048; 83735; 84443; 85025; 93005; 99283; 99284; A9270